=== PATIENT | male | born 1980 | race Caucasian/White ===

== ENCOUNTER 2019-07-13 16:25 | Emergency (ER) | payer BC, OTHER ==
[~2019-07-13] VITALS: Ht 172.7 cm; Wt 72.1 kg
--- NOTE | 2019-07-13 16:58 | NUR ---
PT CAME INTO THE ED C/O N/V X 5 TODAY. PT STATED HE HAS NUMBNESS ALL OVER HIS BODY. PT AAOX4, BREATHING EVEN AND UNLABORED, AMBULATORY. PT CONNECTED TO THE MONITOR. WILL CONTINUE TO MONITOR
--- NOTE | 2019-07-13 17:44 | NUR ---
BLOOD DRAWN AND SENT TO LAB
[2019-07-13] MEDS ORDERED: ONDANSETRON HCL/PF 4 MG/2 ML VIAL ONE (17:55)
[2019-07-13] MEDS ORDERED: IV NS 0.9% 1,000 ML BAG IV ONE (18:00)
[2019-07-13] MEDS ORDERED: ONDANSETRON HCL/PF 4 MG/2 ML VIAL IVP ONE (18:00)
[2019-07-13 18:07] LABS: CALCIUM, SERUM 9.3 mg/dL (8.5-10.1); CREATININE 1.1 mg/dL (0.6-1.3); POTASSIUM 3.2 mmol/L (3.5-5.1)
[2019-07-13] MEDS ORDERED: POTASSIUM CHLORIDE 20 MEQ TAB.PRT.SR PO ONE ×2 (18:27→18:30)
--- NOTE | 2019-07-13 19:06 | NUR ---
Patient discharged to home in stable condition. Written and verbal after care instructions given. Patient verbalizes understanding of instruction.
[2019-07-13 19:07] VITALS: BP 132/73
== END 2019-07-13 19:08 | disposition home or self-care (01) ==
LOC: ER 16:28
DX: E86.0 Dehydration (principal); E87.6 Hypokalemia; R11.2 Nausea with vomiting, unspecified; F41.9 Anxiety disorder, unspecified; F32.9 Major depressive disorder, single episode, unspecified
CPT/HCPCS: 36415; 80048; 96361; 96374; 99283; J2405; J7030 ×2